=== PATIENT | male | born 2000 | race Two or more races ===

== ENCOUNTER 2025-08-13 10:00 | Emergency (ER) | payer OTHER ==
[~2025-08-13] VITALS: Ht 170.2 cm; Wt 70.3 kg
[2025-08-13 11:00] VITALS: BP 129/81; TEMP 98.5; O2SAT 99
== END 2025-08-13 11:00 ==
LOC: ER 10:08
DX: S00.12XA Contusion of left eyelid and periocular area, initial encounter (principal); Y04.2XXA Assault by strike against or bumped into by another person, initial encounter; Y93.89 Activity, other specified; Y92.89 Other specified places as the place of occurrence of the external cause; Y99.8 Other external cause status